=== PATIENT | female | born 1990 | race Caucasian/White ===

== ENCOUNTER → 2022-12-28 14:08 | Outpatient (CLI) | payer BC, MEDICAID, SELFPAY ==
--- NOTE | ~2022-12-28 | US_ITS ---
EXAMINATION: US pelvic complete DATE: 12/28/2022 14:25 INDICATION: Pelvic pain. Missing IUD strings. Comparison:03/07/2018 TECHNIQUE: Multiple transabdominal and endovaginal sonographic images of the pelvis performed. FINDINGS: The uterus measures 10.4 x 5.1 x 1.9 cm. There is an IUD in the endometrium. The endometria l complex measures 8 mm. The right ovary measures 2.9 x 2.1 x 3.2 cm and the left ovary measures 3.1 x 1.9 x 2.8 cm. There ar e small follicles in each ovary. Normal doppler signal in both ovaries. There is no free fluid in the pelvis. There are no abnormal masses seen on either side. IMPRESSION: 1. Mildly enlarged uterus. Endometrium present in the endometrium. Reviewed, dictated and finalized at location A.
== END ==
PROVIDERS: PCP Internal Medicine; Visit Provider Obstetrics & Gynecology Gynecology
DX: T83.32XA Displacement of intrauterine contraceptive device, initial encounter (principal); N85.2 Hypertrophy of uterus
CPT/HCPCS: 76856